=== PATIENT | male | born 1980 | race Caucasian/White ===

== ENCOUNTER 2020-12-24 13:31 | Outpatient (CLI) | payer BC | END 2020-12-24 13:32 | disposition critical access hospital (66) | LOC: EMS 13:31 | PROVIDERS: ATTEND Emergency Medicine | DX: R10.84 Generalized abdominal pain (principal); K92.1 Melena; R55 Syncope and collapse | CPT/HCPCS: A0425; A0427 ==

== ENCOUNTER 2020-12-24 13:48 | Emergency (ER) | payer BC ==
[2020-12-24] MEDS ORDERED: SODIUM CHLORIDE 0.9% 1,000 ML IV STA ×2 (14:06→14:20)
[2020-12-24 14:09] LABS: BASOPHILS % (AUTO) 0.4 %; EOSINOPHILS # (AUTO) 0.1 10^3/uL (0.0-0.7); EOSINOPHILS % (AUTO) 0.6 %; HGB - HEMOGLOBIN 9.7 g/dL (14.0-18.0); LYMPHOCYTES # (AUTO) 2.9 10^3/uL (1.5-3.5); LYMPHOCYTES % (AUTO) 31.1 %; MEAN CORPUSCULAR HEMOGLOBIN 29.2 pg (27.0-31.0); MEAN CORPUSCULAR HGB CONC 32.7 g/dL (32.0-36.0); MEAN CORPUSCULAR VOLUME 89.5 fL (80.0-94.0); MEAN PLATELET VOLUME 9.8 fL (7.4-11.4); MONOCYTES # (AUTO) 0.5 10^3/uL (0.0-1.0); MONOCYTES % (AUTO) 4.9 %; NEUTROPHILS # (AUTO) 5.8 10^3/uL (1.5-6.6); NEUTROPHILS % (AUTO) 61.6 %; PLT - PLATELET COUNT 208 10^3/uL (130-450); RED BLOOD COUNT 3.32 10^6/uL (4.70-6.10); RED CELL DISTRIBUTION WIDTH 13.4 % (12.0-15.0); WHITE BLOOD COUNT 9.4 x10^3/uL (4.8-10.8)
--- NOTE | 2020-12-24 14:25 | ED Physician Documentation ---
History of Present Illness - Stated complaint Stated Complaint: ABD PX - Chief complaint Chief Complaint: Abd Pain - Additonal information Additional information: 40-year-old male presents emergency department for evaluation of 4 days black f ormed stools and near syncope. He denies any history of melena or hematochezia in the past. He denies NSAID use. Reports drinking 2-3 beers "here and there." He has not fainted but states that a few times with ambulation he has nearly fainted over the last 2 days He has had some nausea but no vomiting. He denies abdominal pain. No fevers. On presentation this gentleman is tachycardic and quite pale appearing though he was alert and able to participate in exam and history. Past medical history: low back pain Social: Positive tobacco. Infrequent EtOH. Surgical: Lumbar laminectomy Review of Systems Constitutional: denies: Fever, Chills Eyes: reports: Reviewed and negative Ears: reports: Reviewed and negative Throat: reports: Reviewed and negative Cardiac: reports: Reviewed and negative Respiratory: reports: Reviewed and negative GI: reports: Nausea, Bloody / black stool. denies: Abdominal Pain, Vomiting, Constipation, Diarrhea : reports: Dysuria Skin: reports: Reviewed and negative Musculoskeletal: reports: Reviewed and negative Neurologic: reports: Near syncope. denies: Generalized weakness, Syncope, Seizure, Confused, Altered mental status, Headache, Head injury PD PAST MEDICAL HISTORY - Past Medical History Past Medical History: Yes - Past Surgical History Past Surgical History: Yes - Present Medications Home Medications: Ambulatory Orders Medication Instructions Recorded Confirmed No Known Home Medications 12/24/20 12/24/20 - Allergies Allergies/Adverse Reactions: Allergies Allergy/AdvReac Type Severity Reaction Status Date / Time No Known Drug Allergies Allergy Verified 12/24/20 13:56 - Social History Does the pt smoke?: Yes Smoking Status: Current every day smoker Does the pt drink ETOH?: Yes Does the pt have substance abuse?: No - POLST Patient has POLST: No PD ED PE EXPANDED - General General: Alert, Anxious, Other (pale appearing) - HEENT HEENT: Atraumatic, PERRL, Other (pale lips, tonuge OP) - Cardiac Cardiac: Tachy, Radial strong equal, Pedal strong equal, Cap refill < 2 sec. No: Murmur Present - Respiratory Respiratory: Clear to ausultation angelo. No: Distress, Labored - Abdomen Abdomen: Normal Bowel sounds. No: Tender to palpation - Rectal Rectal: Normal Tone, Other (Moderate amount of melecio melena on gloved finger) - Derm Derm: Warm and dry, Pale. No: Rash, Petecchiae, Purpura - Extremities Extremities: Normal. No: Deformity, Tenderness - Neuro Neuro: Alert and Oriented X 3, CNII-XII intact - GCS Eye Opening: Spontaneous Motor: Obeys Commands Verbal: Oriented Total: 15 Results - Vitals Vitals: Vital Signs - 24 hr 12/24/20 12/24/20 12/24/20 13:55 14:06 14:33 Temperature 37.4 C 36.7 C Heart Rate 146 H 122 H 102 H Heart Rate [ Sitting] Heart Rate [ Standing] Heart Rate [ Supine] Respiratory 14 16 15 Rate Blood Pressure 111/83 H 97/63 105/75 Blood Pressure [Sitting] Blood Pressure [Standing] Blood Pressure [Supine] O2 Saturation 99 100 100 12/24/20 12/24/20 12/24/20 15:03 15:30 16:00 Temperature Heart Rate 108 H 101 H 90 Heart Rate [ Sitting] Heart Rate [ Standing] Heart Rate [ Supine] Respiratory 18 19 15 Rate Blood Pressure 100/60 128/73 127/63 Blood Pressure [Sitting] Blood Pressure [Standing] Blood Pressure [Supine] O2 Saturation 99 99 95 12/24/20 12/24/20 12/24/20 16:30 17:00 17:15 Temperature Heart Rate 91 90 Heart Rate [ 121 H Sitting] Heart Rate [ 124 H Standing] Heart Rate [ 96 Supine] Respiratory 19 15 Rate Blood Pressure 124/67 120/70 Blood Pressure 121/80 [Sitting] Blood Pressure 105/72 [Standing] Blood Pressure 116/76 [Supine] O2 Saturation 100 98 12/24/20 12/24/20 12/24/20 17:25 17:30 18:15 Temperature 36.0 C L Heart Rate 91 95 101 H Heart Rate [ Sitting] Heart Rate [ Standing] Heart Rate [ Supine] Respiratory 14 17 15 Rate Blood Pressure 106/72 114/78 113/70 Blood Pressure [Sitting] Blood Pressure [Standing] Blood Pressure [Supine] O2 Saturation 100 100 97 12/24/20 12/24/20 12/24/20 18:30 19:04 19:30 Temperature Heart Rate 98 92 92 Heart Rate [ Sitting] Heart Rate [ Standing] Heart Rate [ Supine] Respiratory 18 17 19 Rate Blood Pressure 110/60 112/64 118/57 L Blood Pressure [Sitting] Blood Pressure [Standing] Blood Pressure [Supine] O2 Saturation 99 98 98 12/24/20 12/24/20 20:00 20:30 Temperature Heart Rate 94 91 Heart Rate [ Sitting] Heart Rate [ Standing] Heart Rate [ Supine] Respiratory 14 15 Rate Blood Pressure 124/65 116/67 Blood Pressure [Sitting] Blood Pressure [Standing] Blood Pressure [Supine] O2 Saturation 98 98 Oxygen O2 Source Room air - EKG (time done) 1358 Rate: Rate (enter#) (126) Rhythm: Sinus tachycardia Spencer: Normal QRS: Poor R wave progression Ischemia: Non specific changes (borderline GARY anterior leads) Compare to prior EKG: Old EKG unavailable Computer interpretation: Agree with computer - Labs Labs: Laboratory Tests 12/24/20 12/24/20 12/24/20 13:58 13:58 13:58 WBC 9.4 RBC 3.32 L Hgb 9.7 L Hct 29.7 L MCV 89.5 MCH 29.2 MCHC 32.7 RDW 13.4 Plt Count 208 MPV 9.8 Neut # (Auto) 5.8 Lymph # (Auto) 2.9 [place] # (Auto) 0.5 Eos # (Auto) 0.1 Baso # (Auto) 0.0 Absolute Nucleated RBC 0.00 Nucleated RBC % 0.0 PT 14.8 H INR 1.3 H Sodium 135 Potassium 4.5 Chloride 105 Carbon Dioxide 20 L Anion Gap 10.0 BUN 45 H Creatinine 0.8 Estimated GFR (MDRD) 108 Glucose 129 H Lactic Acid Calcium 8.5 Total Bilirubin 0.6 AST 34 ALT 69 H Alkaline Phosphatase 45 Total Protein 5.7 L Albumin 3.6 Globulin 2.1 Albumin/Globulin Ratio 1.7 Lipase 37 Urine Color Urine Clarity Urine pH Ur Specific [place] Urine Protein Urine Glucose (UA) Urine Ketones Urine Occult Blood Urine Nitrite Urine Bilirubin Urine Urobilinogen Ur Leukocyte Esterase Ur Microscopic Review Urine Culture Comments Nasal Adenovirus (PCR) Nasal B. parapertussis DNA (PCR) Nasal Coronavir 229E PCR Nasal Coronavir HKU1 PCR Nasal Coronavir NL63 PCR Nasal Coronavir OC43 PCR Nasal Enterovir/Rhinovir PCR Nasal Influenza B PCR Nasal Influenza A PCR Nasal Parainfluen 1 PCR Nasal Parainfluen 2 PCR Nasal Parainfluen 3 PCR Nasal Parainfluen 4 PCR Nasal RSV (PCR) Nasal B.pertussis DNA PCR Nasal C.pneumoniae (PCR) [place] Human Metapneumo PCR Nasal M.pneumoniae (PCR) Nasal SARS-CoV-2 (PCR) Blood Type Blood Type Recheck Antibody Screen 12/24/20 12/24/20 12/24/20 13:58 14:28 14:29 WBC RBC Hgb Hct MCV MCH MCHC RDW Plt Count MPV Neut # (Auto) Lymph # (Auto) [place] # (Auto) Eos # (Auto) Baso # (Auto) Absolute Nucleated RBC Nucleated RBC % PT INR Sodium Potassium Chloride Carbon Dioxide Anion Gap BUN Creatinine Estimated GFR (MDRD) Glucose Lactic Acid 1.4 Calcium Total Bilirubin AST ALT Alkaline Phosphatase Total Protein Albumin Globulin Albumin/Globulin Ratio Lipase Urine Color Urine Clarity Urine pH Ur Specific [place] Urine Protein Urine Glucose (UA) Urine Ketones Urine Occult Blood Urine Nitrite Urine Bilirubin Urine Urobilinogen Ur Leukocyte Esterase Ur Microscopic Review Urine Culture Comments Nasal Adenovirus (PCR) Nasal B. parapertussis DNA (PCR) Nasal Coronavir 229E PCR Nasal Coronavir HKU1 PCR Nasal Coronavir NL63 PCR Nasal Coronavir OC43 PCR Nasal Enterovir/Rhinovir PCR Nasal Influenza B PCR Nasal Influenza A PCR Nasal Parainfluen 1 PCR Nasal Parainfluen 2 PCR Nasal Parainfluen 3 PCR Nasal Parainfluen 4 PCR Nasal RSV (PCR) Nasal B.pertussis DNA PCR Nasal C.pneumoniae (PCR) [place] Human Metapneumo PCR Nasal M.pneumoniae (PCR) Nasal SARS-CoV-2 (PCR) Blood Type B POSITIVE Blood Type Recheck B POSITIVE Antibody Screen NEGATIVE 12/24/20 12/24/20 12/24/20 14:42 16:09 17:25 WBC RBC Hgb 8.5 L Hct 26.3 L MCV MCH MCHC RDW Plt Count MPV Neut # (Auto) Lymph # (Auto) [place] # (Auto) Eos # (Auto) Baso # (Auto) Absolute Nucleated RBC Nucleated RBC % PT INR Sodium Potassium Chloride Carbon Dioxide Anion Gap BUN Creatinine Estimated GFR (MDRD) Glucose Lactic Acid Calcium Total Bilirubin AST ALT Alkaline Phosphatase Total Protein Albumin Globulin Albumin/Globulin Ratio Lipase Urine Color YELLOW Urine Clarity CLEAR Urine pH 5.5 Ur Specific [place] 1.025 Urine Protein NEGATIVE Urine Glucose (UA) NEGATIVE Urine Ketones TRACE Urine Occult Blood NEGATIVE Urine Nitrite NEGATIVE Urine Bilirubin NEGATIVE Urine Urobilinogen 0.2 (NORMAL) Ur Leukocyte Esterase NEGATIVE Ur Microscopic Review NOT INDICATED Urine Culture Comments NOT INDICATED Nasal Adenovirus (PCR) NOT DETECTED Nasal B. parapertussis DNA (PCR) NOT DETECTED Nasal Coronavir 229E PCR NOT DETECTED Nasal Coronavir HKU1 PCR NOT DETECTED Nasal Coronavir NL63 PCR NOT DETECTED Nasal Coronavir OC43 PCR NOT DETECTED Nasal Enterovir/Rhinovir PCR NOT DETECTED Nasal Influenza B PCR NOT DETECTED Nasal Influenza A PCR NOT DETECTED Nasal Parainfluen 1 PCR NOT DETECTED Nasal Parainfluen 2 PCR NOT DETECTED Nasal Parainfluen 3 PCR NOT DETECTED Nasal Parainfluen 4 PCR NOT DETECTED Nasal RSV (PCR) NOT DETECTED Nasal B.pertussis DNA PCR NOT DETECTED Nasal C.pneumoniae (PCR) NOT DETECTED [place] Human Metapneumo PCR NOT DETECTED Nasal M.pneumoniae (PCR) NOT DETECTED Nasal SARS-CoV-2 (PCR) NOT DETECTED Blood Type Blood Type Recheck Antibody Screen - Rads (name of study) CT abd/pelvis Radiology: Final report received (Heterogeneously hyperenhancing 12.5 cm mass is seen within the left upper quadrant that is confluent with multiple varicose vessels including gastric varices. Differentials includes splenic vein thrombosis with development of collateral vessels versus vascular malformation) PD MEDICAL DECISION MAKING - ED course Complexity details: reviewed results, re-evaluated patient, considered differential, d/w patient ED course: 40-year-old male presents to the emergency department for evaluation of near syncope and melena for 4 days. On presentation he was initially tachycardic sinus rhythm in the 120s. Initial hemoglobin 9.7. The rest of the chemistry and CBC was essentially unremarkable. We did proceed with a CT of the abdomen. Unfortunately there is a 12.5 cm hyperenhancing mass within the left upper quadrant confluent with multiple gastric varices. This could represent primary variceal hemorrhage versus a splenic vein thrombosis that ultimately developed collateral vessels versus a primary vascular malformation. 1600: I did speak with on-call surgeon Dr. Hernandez. She does not feel that we have the adequate services including gastroenterology here at [facility] to continue to manage this patient. We will look to transfer him to an outlying facility. Respiratory PCR panel ordered for emergent transport. Patient has received nearly 2 L of crystalloid with reduction of in heart rate to the mid 90s. I have instituted Protonix and octreotide infusion as well as ordered 2 g of ceftriaxone. 1630: Spoke with Dr. Isaiah Luna wireworker supervisor at [facility]. He does not feel that they have the adequate GI services available for thrombosing or sclerosing of this large mass. He recommends that we attempt transfer to [facility] or [facility] versus [facility]. 1645: I have Spoken on the phone with Dr. Bradley gastroenterology associated with [facility]. He agrees that the patient should be transferred. GI will consult. [facility] will call us back with an accepting hospitalist and bed. 1700: I have spoken with admitting hospitalist Dr. Irene at [facility]. She agrees the patient should be transferred and agrees to accept on transfer however she would like repeat orthostatic vital signs as well as a hemogram to determine which type of bed is necessary. 1830: Repeat hemogram despite 2 L of fluid shows a drop of only 1 g of hemoglobin. Patient's resting tachycardia has resolved although he does remain somewhat orthostatic when standing in regards to his heart rate. This finding was discussed with Dr. Irene at [facility]. She feels he is stable for continuation of transferred there via ALS. He will be going to medical surgical floor. All appropriate COBRA paperwork completed. Findings and plan communicated to patient and I have spoken on the phone with his regarding the plan to transfer Departure - Departure Disposition: 02 Transfer Acute Care Hosp Clinical Impression: Upper GI hemorrhage, Abdominal mass, left upper quadrant, Gastric varices
[2020-12-24 14:27] LABS: ALBUMIN 3.6 g/dL (3.2-5.5); ALBUMIN/GLOBULIN RATIO 1.7 (1.0-2.2); BILIRUBIN,TOTAL 0.6 mg/dL (0.2-1.0); CALCIUM 8.5 mg/dL (8.5-10.3); CREATININE 0.8 mg/dL (0.6-1.2); TOTAL PROTEIN 5.7 g/dL (6.7-8.2)
[2020-12-24 14:37] LABS: INR 1.3 (0.8-1.2); PT - PROTHROMBIN TIME 14.8 secs (9.9-12.6)
[2020-12-24 14:52] LABS: BILIRUBIN,URINE NEGATIVE (NEGATIVE); GLUCOSE, URINE (UA) NEGATIVE (NEGATIVE); KETONES,URINE (UA) TRACE mg/dL (NEGATIVE); LEUKOCYTE ESTERASE, URINE NEGATIVE (NEGATIVE); NITRITE,URINE NEGATIVE (NEGATIVE); OCCULT BLOOD,URINE NEGATIVE (NEGATIVE); PH,URINE 5.5 PH (5.0-7.5); PROTEIN,URINE NEGATIVE (NEGATIVE); UROBILINOGEN,URINE 0.2 (NORMAL) E.U./dL (NORMAL)
[2020-12-24 14:53] LABS: CLARITY,URINE CLEAR (CLEAR)
[2020-12-24] MEDS ORDERED: IOVERSOL 320 100 ML VIAL IVP ONE ×2 (15:05→16:59)
[2020-12-24] MEDS ORDERED: PANTOPRAZOLE 40 MG VIAL IVP STA (15:48)
[2020-12-24] MEDS ORDERED: PANTOPRAZOLE 80 MG in SODIUM CHLORIDE 0.9% 100ML 100 ML IV STA (15:48)
--- NOTE | 2020-12-24 15:55 | CT Report ---
PROCEDURE: Abdomen/Pelvis W INDICATIONS: hypotension, tachycardia, melena CONTRAST: IV CONTRAST: Optiray 320 ml: 100 PO CONTRAST: *NO PO CONTRAST TECHNIQUE: After the administration of intravenous contrast, 5 mm thick sections acquired from the diaphragms to the symphysis. 5 mm thick coronal and sagittal reformats were acquired. For radiation dose reducti on, the following was used: automated exposure control, adjustment of mA and/or kV according to dodie ent size. COMPARISON: None. FINDINGS: Image quality: Excellent. ABDOMEN: Lung bases: Lung bases are clear. Heart size is normal. Solid organs: Liver and spleen are normal in size and enhancement. Gallbladder appears normal. Melvin iary system is non dilated. Pancreas enhances normally. No adrenal nodules. Kidneys demonstrate no rmal size and enhancement, without hydronephrosis. A 5 mm nodular calculus is seen in the interpolar region of the left kidney. Peritoneum and bowel: Bowel loops demonstrate normal wall thickness and caliber. No free fluid or a ir. Nodes and vessels: No retroperitoneal or mesenteric adenopathy by size criteria. Aorta and inferior vena cava are normal in size. There is a heterogeneously hyperenhancing mass in the left upper quadrant measuring 11.3 x 8.2 x 12.5 cm that is confluent with multiple tubular mildly dilated blood vessels including gastric varices. T he mass is confluent with the splenic vein, which is enlarged and hypoenhancing. The mass appears to be separate from the adjacent left kidney, adrenal, spleen, and gastric fundus. The pancreatic tail i s difficult to differentiate from portions of the mass. Miscellaneous: No ventral hernias. PELVIS: Genitourinary: Bladder wall thickness is normal. Miscellaneous: No inguinal hernias or adenopathy. Bones: No suspicious bony lesions. No vertebral body compression fractures. Degenerative changes a re seen in the spine at the L5-S1 level. IMPRESSION: Heterogeneously hyperenhancing 12.5 cm mass is seen in the left upper quadrant that is confluent with multiple varicose vessels including gastric varices, which could represent a source for gastrointest inal hemorrhage. Differential considerations for the mass include splenic vein thrombosis with develo pment of numerous enlarged collateral vessels versus a vascular malformation or a hypervascular neopl asm. There is no significant upper abdominal lymphadenopathy. No intraperitoneal hemorrhage is seen. Consider CT angiogram with arterial and venous phases for further evaluation. Findings were discussed with the ordering provider, Cathy MURPHY, of the Emergency Departmen t by telephone on 12/24/2020 at 3:50 PM. Reviewed by: Seth Timmons MD on 12/24/2020 3:54 PM PST Approved by: Seth Timmons MD on 12/24/2020 3:54 PM PST Station ID: [id number]
[2020-12-24] MEDS ORDERED: OCTREOTIDE 500 MCG in SODIUM CHLORIDE 0.9% 100ML 95 ML IV STA (16:04)
[2020-12-24] MEDS ORDERED: OCTREOTIDE IV STA (16:08)
[2020-12-24] MEDS ORDERED: SODIUM CHLORIDE 0.9% IV STA (16:08)
[2020-12-24] MEDS ORDERED: cefTRIAXone 2 GM in SODIUM CHLORIDE 0.9% MINIBAG 100 ML IV STA (16:09)
[2020-12-24 17:07] LABS: C. PNEUMONIAE- RESP PCR PANEL NOT DETECTED
[2020-12-24 17:32] LABS: HGB - HEMOGLOBIN 8.5 g/dL (14.0-18.0)
[2020-12-24 20:33] VITALS: BP 116/67
== END 2020-12-24 20:49 | disposition short-term general hospital (02) ==
LOC: ED 13:48
DX: K92.2 Gastrointestinal hemorrhage, unspecified (principal); I86.4 Gastric varices; R19.00 Intra-abdominal and pelvic swelling, mass and lump, unspecified site; R00.0 Tachycardia, unspecified; F17.200 Nicotine dependence, unspecified, uncomplicated; Z20.822 Contact with and (suspected) exposure to COVID-19
CPT/HCPCS: 0202U; 36415; 74177; 80053; 81003; 83605; 83690; 85014; 85018; 85025; 85610; 86850; 86900; 86901; 93005; 96361; 96365; 96375; 96376; 99283; 99285; Q9967; 81001; 87086

== ENCOUNTER 2020-12-24 20:52 | Outpatient (CLI) | payer BC | END 2020-12-24 20:53 | disposition short-term general hospital (02) | LOC: EMS 20:52 | DX: K92.2 Gastrointestinal hemorrhage, unspecified (principal); R19.04 Left lower quadrant abdominal swelling, mass and lump | CPT/HCPCS: A0425; A0426 ==

== ENCOUNTER 2021-01-03 21:47 | Outpatient (CLI) | payer BC | END 2021-01-03 21:48 | disposition critical access hospital (66) | LOC: EMS 21:47 | PROVIDERS: ATTEND Emergency Medicine | DX: R10.9 Unspecified abdominal pain (principal) | CPT/HCPCS: A0425; A0429 ==

== ENCOUNTER 2021-01-03 22:12 | Emergency (ER) | payer BC ==
[2021-01-03] MEDS ORDERED: HYDROmorphone 1 MG/ML CARPUJECT IVP STA (22:30)
[2021-01-03] MEDS ORDERED: SODIUM CHLORIDE 0.9% 1,000 ML IV STA (22:30)
[2021-01-03] MEDS ORDERED: IOVERSOL 320 100 ML VIAL IVP ONE ×2 (22:45→23:31)
[2021-01-03 22:49] LABS: BASOPHILS # (AUTO) 0.1 10^3/uL (0.0-0.1); BASOPHILS % (AUTO) 0.4 %; EOSINOPHILS # (AUTO) 0.2 10^3/uL (0.0-0.7); EOSINOPHILS % (AUTO) 1.5 %; HGB - HEMOGLOBIN 7.7 g/dL (14.0-18.0); LYMPHOCYTES # (AUTO) 1.2 10^3/uL (1.5-3.5); LYMPHOCYTES % (AUTO) 7.6 %; MEAN CORPUSCULAR HEMOGLOBIN 27.9 pg (27.0-31.0); MEAN CORPUSCULAR HGB CONC 31.8 g/dL (32.0-36.0); MEAN CORPUSCULAR VOLUME 87.7 fL (80.0-94.0); MEAN PLATELET VOLUME 8.9 fL (7.4-11.4); MONOCYTES # (AUTO) 1.4 10^3/uL (0.0-1.0); MONOCYTES % (AUTO) 8.7 %; NEUTROPHILS # (AUTO) 12.9 10^3/uL (1.5-6.6); NEUTROPHILS % (AUTO) 80.7 %; PLT - PLATELET COUNT 545 10^3/uL (130-450); RED BLOOD COUNT 2.76 10^6/uL (4.70-6.10); RED CELL DISTRIBUTION WIDTH 14.6 % (12.0-15.0); WHITE BLOOD COUNT 15.9 x10^3/uL (4.8-10.8)
[2021-01-03 23:04] LABS: ALBUMIN 2.3 g/dL (3.2-5.5); ALBUMIN/GLOBULIN RATIO 0.7 (1.0-2.2); CALCIUM 8.5 mg/dL (8.5-10.3); CREATININE 0.7 mg/dL (0.6-1.2); TOTAL PROTEIN 5.7 g/dL (6.7-8.2)
[2021-01-03] MEDS ORDERED: LACTATED RINGERS 1,500 ML IV STA (23:27)
[2021-01-03 23:48] LABS: GLUCOSE, URINE (UA) NEGATIVE (NEGATIVE); KETONES,URINE (UA) >=80 mg/dL (NEGATIVE); LEUKOCYTE ESTERASE, URINE NEGATIVE (NEGATIVE); NITRITE,URINE NEGATIVE (NEGATIVE); OCCULT BLOOD,URINE TRACE-LYSE (NEGATIVE); PH,URINE 6.5 PH (5.0-7.5); PROTEIN,URINE NEGATIVE (NEGATIVE); UROBILINOGEN,URINE 4 E.U./dL (NORMAL)
[2021-01-03 23:50] LABS: CLARITY,URINE CLEAR (CLEAR)
[2021-01-04] LABS: BILIRUBIN,URINE NEGATIVE (NEGATIVE); ICTOTEST,URINE NEGATIVE
[2021-01-04] MEDS ORDERED: HYDROmorphone 0.5 MG/0.5 ML SYRINGE IVP STA (00:19)
--- NOTE | 2021-01-04 00:26 | ED Physician Documentation ---
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 Leyva at [facility], presents with abdominal pain, that is diffuse, constant, severe 10 out of 10, progressively worsening aching quality associated with abdominal bloating and inability to have a bowel movement since his surgery. Patient states that his CLIFFORD drain has been putting about 400 cc over the past 24 hours. Denies fevers or chills. Denies cough, shortness of breath, urinary symptoms. Denies nausea or vomiting. Review of Systems Ten Systems: 10 systems reviewed and negative Constitutional: denies: Fever GI: reports: Abdominal Pain, Constipation. denies: Nausea, Vomiting : denies: Dysuria, Frequency, Hematuria Neurologic: reports: Generalized weakness PD PAST MEDICAL HISTORY - Past Medical History Past Medical History: No - Past Surgical History Past Surgical History: Yes General: Splenectomy - Present Medications Home Medications: Ambulatory Orders Medication Instructions Recorded Confirmed No Known Home Medications 12/24/20 12/24/20 - Allergies Allergies/Adverse Reactions: Allergies Allergy/AdvReac Type Severity Reaction Status Date / Time shellfish derived Allergy Edema Verified 01/03/21 22:23 - Social History Does the pt smoke?: Yes Smoking Status: Current every day smoker Does the pt drink ETOH?: Yes Does the pt have substance abuse?: No - Immunizations Immunizations are current?: Yes - POLST Patient has POLST: No PD ED PE NORMAL - Vitals Vital signs reviewed: Yes - General General: Alert and oriented X 3, Well developed/nourished, Other (moderate distress) - HEENT HEENT: Atraumatic, PERRL, EOMI - Neck Neck: Supple, no meningeal sign - Cardiac Cardiac: RRR - Respiratory Respiratory: No respiratory distress, Clear bilaterally - Abdomen Abdomen: Other (distended and diffusely ttp. wound sites clean. CLIFFORD with about 80cc serous fluid) - Male Male : Deferred - Rectal Rectal: Other (brown stool in vault) - Back Back: No CVA TTP - Derm Derm: Normal color - Extremities Extremities: No edema - Neuro Neuro: Alert and oriented X 3 - Psych Psych: Normal mood, Normal affect Results - Vitals Vitals: Vital Signs - 24 hr 01/03/21 01/03/21 01/03/21 22:10 22:29 22:45 Temperature 37.7 C 37.7 C Heart Rate 87 87 85 Respiratory 18 18 18 Rate Blood Pressure 136/68 H 136/68 H 139/78 H O2 Saturation 98 98 100 01/03/21 01/03/21 01/04/21 23:15 23:30 00:00 Temperature Heart Rate 86 86 88 Respiratory 18 18 18 Rate Blood Pressure 136/76 H 165/79 H 180/100 H O2 Saturation 100 100 99 Oxygen O2 Source Room air - Labs Labs: Laboratory Tests 01/03/21 01/03/21 01/03/21 22:42 22:42 22:42 WBC 15.9 H RBC 2.76 L Hgb 7.7 L Hct 24.2 L MCV 87.7 MCH 27.9 MCHC 31.8 L RDW 14.6 Plt Count 545 H MPV 8.9 Neut # (Auto) 12.9 H Lymph # (Auto) 1.2 L [place] # (Auto) 1.4 H Eos # (Auto) 0.2 Baso # (Auto) 0.1 Absolute Nucleated RBC 0.28 Nucleated RBC % 1.8 APTT Sodium 136 Potassium 4.0 Chloride 99 L Carbon Dioxide 23 Anion Gap 14.0 H BUN 9 Creatinine 0.7 Estimated GFR (MDRD) 126 Glucose 127 H Lactic Acid 0.9 Calcium 8.5 Total Bilirubin 1.0 AST 46 H ALT 59 Alkaline Phosphatase 141 H Total Protein 5.7 L Albumin 2.3 L Globulin 3.4 Albumin/Globulin Ratio 0.7 L Lipase 30 Urine Color Urine Clarity Urine pH Ur Specific [place] Urine Protein Urine Glucose (UA) Urine Ketones Urine Occult Blood Urine Nitrite Urine Bilirubin Urine Urobilinogen Ur Leukocyte Esterase Ur Microscopic Review Urine Culture Comments 01/03/21 01/03/21 22:42 23:38 WBC RBC Hgb Hct MCV MCH MCHC RDW Plt Count MPV Neut # (Auto) Lymph # (Auto) [place] # (Auto) Eos # (Auto) Baso # (Auto) Absolute Nucleated RBC Nucleated RBC % APTT 25.4 Sodium Potassium Chloride Carbon Dioxide Anion Gap BUN Creatinine Estimated GFR (MDRD) Glucose Lactic Acid Calcium Total Bilirubin AST ALT Alkaline Phosphatase Total Protein Albumin Globulin Albumin/Globulin Ratio Lipase Urine Color YELLOW Urine Clarity CLEAR Urine pH 6.5 Ur Specific [place] 1.020 Urine Protein NEGATIVE Urine Glucose (UA) NEGATIVE Urine Ketones >=80 H Urine Occult Blood TRACE-LYSE Urine Nitrite NEGATIVE Urine Bilirubin NEGATIVE Urine Urobilinogen 4 H Ur Leukocyte Esterase NEGATIVE Ur Microscopic Review NOT INDICATED Urine Culture Comments NOT INDICATED PD MEDICAL DECISION MAKING - ED course ED course: 40yM presents pod 5 with low grade fever and intestinal ileus on ct. d/w gen surg Dr. Ulrich strike planning applications at [facility] who will accept patient in transfer. surgery is recommending holding off on antibiotics for now. ng tube placed and pain meds given with improvement in symptoms. Departure - Departure Disposition: 02 Transfer Acute Care Hosp Clinical Impression: Post-splenectomy, Status post partial gastrectomy, Fever, Abdominal pain, Ileus Condition: Good
[2021-01-04] MEDS ORDERED: LORazepam 2 MG/ML VIAL IVP STA (00:44)
[2021-01-04 01:27] LABS: C. PNEUMONIAE- RESP PCR PANEL NOT DETECTED
[2021-01-04] MEDS ORDERED: HYDROmorphone 2 MG/ML VIAL IVP STA (01:54)
[2021-01-04 02:03] VITALS: BP 174/87
--- NOTE | 2021-01-04 08:23 | XRAY Report ---
PROCEDURE: Chest 1 View X-Ray INDICATIONS: post op day 5 abd surgery with fevers TECHNIQUE: One view of the chest was acquired. COMPARISON: None. FINDINGS: Surgical changes and devices: None. Scattered subsegmental scarring/atelectasis. No acute consolidation. Possible small layering left pl eural effusion, with adjacent mild left basilar/retrocardiac opacity. No pneumothorax identified. Mediastinum: Mediastinal contours appear normal. Heart size is normal. Bones and chest wall: No suspicious bony lesions. Overlying soft tissues appear unremarkable. IMPRESSION: Possible small left pleural effusion with adjacent opacity. Low lung volumes. Scattered subsegmental scarring versus atelectasis/aspiration. No acute consolidation. If there is persistent clinical diagn ostic uncertainty, recommend short interval follow-up chest radiographs after treatment for further a ssessment. Findings are concordant with the preliminary study interpretation provided at the time of the study. Reviewed by: Ata Hernandez MD on 01/04/2021 8:22 AM PST Approved by: Ata Hernandez MD on 01/04/2021 8:22 AM PST Station ID: [id number]
--- NOTE | 2021-01-04 08:26 | XRAY Report ---
PROCEDURE: Post ET Tube 1V CXR INDICATIONS: post ng tube TECHNIQUE: One view of the chest was acquired. COMPARISON: 01/03/2021 FINDINGS: Enteric tube is noted with the tip not well seen however probably within the stomach and left upper q uadrant. Lungs and pleura: No pneumothorax. Mild bibasilar and perihilar atelectatic opacities are improved. P ossible trace left pleural fluid, although low lung volumes limits evaluation. No definite focal cons olidation Mediastinum: Mediastinal contours appear normal. Heart size is normal. Bones and chest wall: No suspicious bony lesions. Overlying soft tissues appear unremarkable. IMPRESSION: Enteric tube with the tip projecting in the left upper quadrant. No new focal consolidation. Low lung volumes with scattered atelectasis. Findings are concordant with the preliminary study interpretation provided at the time of the study. Reviewed by: Ata Hernandez MD on 01/04/2021 8:24 AM PST Approved by: Ata Hernandez MD on 01/04/2021 8:24 AM PST Station ID: [id number]
--- NOTE | 2021-01-04 08:30 | CT Report ---
PROCEDURE: Abdomen/Pelvis W INDICATIONS: Abdominal pain, acute, nonlocalized CONTRAST: IV CONTRAST: Optiray 320 ml: 100 PO CONTRAST: *NO PO CONTRAST TECHNIQUE: After the administration of intravenous contrast, 5 mm thick sections acquired from the diaphragms to the symphysis. 5 mm thick coronal and sagittal reformats were acquired. For radiation dose reducti on, the following was used: automated exposure control, adjustment of mA and/or kV according to dodie ent size. COMPARISON: 12/24/2020 FINDINGS: Image quality: Excellent. ABDOMEN: Lung bases: Small left pleural effusion. Bibasilar atelectasis, left greater than right. Heart size i s normal. Solid organs: Interval splenectomy and distal pancreatectomy and removal of numerous varicosities in the left upper quadrant as well as masslike structures. There are surgical yuliana at the posterior margin of the fundus of the stomach. Liver has a normal enhancement pattern. Gallbladder is unremarka ble. Biliary system is non dilated. Pancreas enhances normally. No adrenal nodules. Kidneys demon strate normal size and enhancement, without hydronephrosis. Peritoneum and bowel: There are numerous dilated small bowel loops with air-fluid levels. The distal small bowel is normal in caliber. Findings may either represent focal ileus or small bowel obstructio n. Recent distal pancreatectomy and splenectomy and removal of multiple left upper quadrant structure s. There is a surgical drain in the left upper quadrant. There are numerous tiny flecks of air within the surgical bed, possibly simply sequelae of recent surgery in the presence of a drain. Nodes and vessels: No retroperitoneal or mesenteric adenopathy by size criteria. Aorta and inferior vena cava are normal in size. Miscellaneous: No ventral hernias. PELVIS: Genitourinary: Bladder wall thickness is normal. Miscellaneous: No inguinal hernias or adenopathy. Bones: No suspicious bony lesions. No vertebral body compression fractures. IMPRESSION: 1. Interval extensive surgery in the left upper quadrant, including splenectomy and distal pancreatec alyce and removal of multiple tubular structures, possibly representing a combination of mass and vari cosities. 2. Flecks of air are present in the surgical bed. There is no abscess identified. A left upper quadra nt surgical drain is in place. 3. Multiple dilated loops of small bowel with air-fluid levels. Consider postop ileus versus developm ent of small bowel obstruction. 4. Small left pleural effusion, basilar atelectasis, left greater than right. A preliminary report with the above findings was provided at the time of the study by [facility]. Reviewed by: Samir Woodward MD on 01/04/2021 8:29 AM PST Approved by: Samir Woodward MD on 01/04/2021 8:29 AM PST Station ID: [id number]
== END 2021-01-04 02:05 | disposition short-term general hospital (02) ==
LOC: ED 22:12
DX: K56.7 Ileus, unspecified (principal); R10.84 Generalized abdominal pain; R50.9 Fever, unspecified; Z98.890 Other specified postprocedural states; Z90.81 Acquired absence of spleen; Z90.3 Acquired absence of stomach [part of]; Z20.822 Contact with and (suspected) exposure to COVID-19; F17.200 Nicotine dependence, unspecified, uncomplicated
CPT/HCPCS: 0202U; 36415; 43753; 71045; 74177; 80053; 81003; 83605; 83690; 85025; 85730; 86850; 86900; 86901; 87040; 96374; 96375; 96376; 99285; J1170; J2060; J7120; Q9967; 81001; 85610; 87086

== ENCOUNTER 2021-01-04 02:03 | Outpatient (CLI) | payer BC | END 2021-01-04 02:04 | disposition short-term general hospital (02) | LOC: EMS 02:03 | PROVIDERS: ATTEND Emergency Medicine | DX: K56.7 Ileus, unspecified (principal); R10.9 Unspecified abdominal pain; R50.9 Fever, unspecified | CPT/HCPCS: A0425; A0428 ==

== ENCOUNTER 2021-08-19 00:19 | Outpatient (CLI) | payer BC | END 2021-08-19 00:20 | disposition critical access hospital (66) | LOC: EMS 00:19 | DX: R50.9 Fever, unspecified (principal); R10.32 Left lower quadrant pain | CPT/HCPCS: A0425; A0427 ==

== ENCOUNTER 2021-08-19 00:39 | Emergency (ER) | payer BC ==
[2021-08-19] MEDS ORDERED: SODIUM CHLORIDE 0.9% 1,000 ML IV STA (00:58)
--- NOTE | 2021-08-19 01:00 | ED Physician Documentation ---
PD HPI ABD PAIN - Stated complaint Stated Complaint: FEVER S/P STENT YESTERDAY - Chief complaint Chief Complaint: Fever - History obtained from History obtained from: Patient, EMS - History of Present Illness Timing - onset: Today Timing - duration: Hours (just in the past couple of hours, has some lower abd cramping pain and noted feverish. Took temp and was 102 degrees at home. He is 1 day s/p ERCP with stent for fluid drainage, and was told to watch for fevers/pains/etc.) Timing - details: Gradual onset Quality: Cramping, Aching, Pain Location: Periumbilical Radiation: No: Chest, Left flank, Right flank Worsened by: No: Moving, Breathing Associated symptoms: Fever (just the past 1-2 hours). No: Nausea, Vomiting, Diarrhea, Constipation, Dysuria Similar symptoms before: Has not had sx before Recently seen: Surgery (Had ERCP at [facility] yesterday by GI for persistent pancreatic fluid (cyst) with drainage of the fluid with stent.) Review of Systems Constitutional: reports: Fever Nose: denies: Rhinorrhea / runny nose, Congestion Throat: reports: Sore throat (after the ERCP yesterday, lessened today) Cardiac: denies: Chest pain / pressure Respiratory: denies: Dyspnea, Cough GI: reports: Abdominal Pain. denies: Nausea, Vomiting, Diarrhea, Bloody / black stool : denies: Dysuria Skin: denies: Rash, Lesions Neurologic: denies: Altered mental status, Headache PD PAST MEDICAL HISTORY - Past Medical History Past Medical History: Yes Cardiovascular: None Respiratory: None Neuro: None HEENT: None Derm: None Other Past Medical History: PANCREATIC CANCER... - Past Surgical History Past Surgical History: Yes General: Splenectomy, Other - Present Medications Home Medications: Ambulatory Orders Medication Instructions Recorded Confirmed levoFLOXacin [Levaquin] 500 mg PO ONCE 08/19/21 08/19/21 - Allergies Allergies/Adverse Reactions: Allergies Allergy/AdvReac Type Severity Reaction Status Date / Time shellfish derived Allergy Edema Verified 08/19/21 00:52 - Social History Does the pt smoke?: Yes Smoking Status: Current every day smoker Does the pt drink ETOH?: Yes Does the pt have substance abuse?: No - Immunizations Immunizations are current?: Yes - POLST Patient has POLST: No PD ED PE NORMAL - Vitals Vital signs reviewed: Yes - General General: Alert and oriented X 3, No acute distress, Well developed/nourished - HEENT HEENT: Moist mucous membranes, Pharynx benign - Neck Neck: Supple, no meningeal sign, No adenopathy - Cardiac Cardiac: RRR, No murmur - Respiratory Respiratory: Clear bilaterally - Abdomen Abdomen: Normal bowel sounds, Soft, Non distended, No organomegaly, Other (mild tender epigastric and LUQ (which he says has had since splenectomy).) - Male Male : Deferred - Back Back: No CVA TTP - Derm Derm: Normal color, Warm and dry - Extremities Extremities: No edema, No calf tenderness / cord - Neuro Neuro: Alert and oriented X 3, No motor deficit, Normal speech Results - Vitals Vitals: Vital Signs - 24 hr 08/19/21 08/19/21 08/19/21 00:49 00:58 01:49 Temperature 37.6 C Heart Rate 95 91 86 Respiratory 17 17 17 Rate Blood Pressure 151/117 H 130/91 H 121/72 O2 Saturation 96 97 96 08/19/21 02:23 Temperature Heart Rate 88 Respiratory 15 Rate Blood Pressure 124/68 O2 Saturation 96 Oxygen O2 Source Room air - Labs Labs: Laboratory Tests 08/19/21 08/19/21 08/19/21 01:00 01:18 01:18 WBC 17.0 H RBC 4.66 L Hgb 13.4 L Hct 41.5 L MCV 89.1 MCH 28.8 MCHC 32.3 RDW 14.5 Plt Count 337 MPV 9.6 Neut # (Auto) 13.3 H Lymph # (Auto) 1.6 O'Brien # (Auto) 2.0 H Eos # (Auto) 0.0 Baso # (Auto) 0.1 Absolute Nucleated RBC 0.00 Band Neuts % (Manual) Not Reportable Abnorm Lymph % (Manual) Not Reportable Nucleated RBC % 0.0 Neutrophils # (Manual) Not Reportable Lymphocytes # (Manual) Not Reportable Monocytes # (Manual) Not Reportable Eosinophils # (Manual) Not Reportable Basophils # (Manual) Not Reportable Differential Comment MANUAL=AUTO DIFF Platelet Estimate NORMAL (130-450,000) RBC Morph Micro Appear NORMAL APPEARANCE Sodium 136 Potassium 3.9 Chloride 101 Carbon Dioxide 26 Anion Gap 9.0 BUN 15 Creatinine 0.8 Estimated GFR (MDRD) 108 Glucose 158 H Lactic Acid Calcium 9.1 Total Bilirubin 1.3 H AST 32 ALT 38 Alkaline Phosphatase 88 Total Protein 6.8 Albumin 4.0 Globulin 2.8 Albumin/Globulin Ratio 1.4 Lipase 92 H Urine Color Urine Clarity Urine pH Ur Specific [place] Urine Protein Urine Glucose (UA) Urine Ketones Urine Occult Blood Urine Nitrite Urine Bilirubin Urine Urobilinogen Ur Leukocyte Esterase Ur Microscopic Review Urine Culture Comments Nasal Adenovirus (PCR) NOT DETECTED Nasal B. parapertussis DNA (PCR) NOT DETECTED Nasal Coronavir 229E PCR NOT DETECTED Nasal Coronavir HKU1 PCR NOT DETECTED Nasal Coronavir NL63 PCR NOT DETECTED Nasal Coronavir OC43 PCR NOT DETECTED Nasal Enterovir/Rhinovir PCR DETECTED A Nasal Influenza B PCR NOT DETECTED Nasal Influenza A PCR NOT DETECTED Nasal Parainfluen 1 PCR NOT DETECTED Nasal Parainfluen 2 PCR NOT DETECTED Nasal Parainfluen 3 PCR NOT DETECTED Nasal Parainfluen 4 PCR NOT DETECTED Nasal RSV (PCR) NOT DETECTED Nasal B.pertussis DNA PCR NOT DETECTED Nasal C.pneumoniae (PCR) NOT DETECTED [place] Human Metapneumo PCR NOT DETECTED Nasal M.pneumoniae (PCR) NOT DETECTED Nasal SARS-CoV-2 (PCR) NOT DETECTED 08/19/21 08/19/21 01:18 02:43 WBC RBC Hgb Hct MCV MCH MCHC RDW Plt Count MPV Neut # (Auto) Lymph # (Auto) O'Brien # (Auto) Eos # (Auto) Baso # (Auto) Absolute Nucleated RBC Band Neuts % (Manual) Abnorm Lymph % (Manual) Nucleated RBC % Neutrophils # (Manual) Lymphocytes # (Manual) Monocytes # (Manual) Eosinophils # (Manual) Basophils # (Manual) Differential Comment Platelet Estimate RBC Morph Micro Appear Sodium Potassium Chloride Carbon Dioxide Anion Gap BUN Creatinine Estimated GFR (MDRD) Glucose Lactic Acid 1.4 Calcium Total Bilirubin AST ALT Alkaline Phosphatase Total Protein Albumin Globulin Albumin/Globulin Ratio Lipase Urine Color YELLOW Urine Clarity CLEAR Urine pH 7.0 Ur Specific [place] 1.015 Urine Protein NEGATIVE Urine Glucose (UA) NEGATIVE Urine Ketones NEGATIVE Urine Occult Blood NEGATIVE Urine Nitrite NEGATIVE Urine Bilirubin NEGATIVE Urine Urobilinogen 1 (NORMAL) Ur Leukocyte Esterase NEGATIVE Ur Microscopic Review NOT INDICATED Urine Culture Comments NOT INDICATED Nasal Adenovirus (PCR) Nasal B. parapertussis DNA (PCR) Nasal Coronavir 229E PCR Nasal Coronavir HKU1 PCR Nasal Coronavir NL63 PCR Nasal Coronavir OC43 PCR Nasal Enterovir/Rhinovir PCR Nasal Influenza B PCR Nasal Influenza A PCR Nasal Parainfluen 1 PCR Nasal Parainfluen 2 PCR Nasal Parainfluen 3 PCR Nasal Parainfluen 4 PCR Nasal RSV (PCR) Nasal B.pertussis DNA PCR Nasal C.pneumoniae (PCR) [place] Human Metapneumo PCR Nasal M.pneumoniae (PCR) Nasal SARS-CoV-2 (PCR) - Rads (name of study) chest xray Radiology: Prelim report reviewed, See rad report abd/pelvic CT Radiology: Prelim report reviewed, See rad report PD MEDICAL DECISION MAKING - ED course Complexity details: reviewed results (expected fluid collection in abd with stent. No free air nor free fluid. lactate normal. UA/CXR negative. Biofire showing positive rhinovirus. ), considered differential (1 day post ERCP with stent placement, with fever and mid abd pain. Can check for leakage/perforation, as well as CXR/UA and resp PCR test. Concern of asplenic. ), d/w patient, d/w talent consultant (local telephone operator GI at [facility], who reviewed pt chart there and images from us, and I discussed labs/exam/findings. His feeling is that patient is okay to go home, that CT would have found acute process (perf, leakage, etc). Presumed viral cause. ) Departure - Departure Disposition: 01 Home, Self Care Clinical Impression: Postprocedural fever, Viral URI Condition: Stable Record reviewed to determine appropriate education?: Yes Comments: Continue your prior instructions from gastroenterology at [facility] as well as the antibiotics prescribed. Stay well-hydrated. Tylenol every 4-6 hours if needed for fevers or pains. I talked with the on-call m1 armor crewman who felt the testing we did was appropriate and adequate to detect any significant cause for the fever. At this point presumption would be a viral illness given the rhinovirus positive on your respiratory panel test. As such I would expect some feverishness as well as sore throat and cough over the next several days. Call your m1 armor crewman in the next day or 2 to update them on any symptoms. Return to the ER in particular if you have worsening abdominal pain or associated vomiting bloody stool or other concerns.
[2021-08-19] MEDS ORDERED: IOVERSOL 320 100 ML VIAL IVP ONE ×2 (01:12→02:31)
[2021-08-19] MEDS ORDERED: HYDROmorphone 1 MG/ML CARPUJECT IVP STA (01:24)
[2021-08-19] MEDS ORDERED: AMPICILLIN/SULBACTAM 1.5 GM in SODIUM CHLORIDE 0.9% MINIBAG 100 ML IV STA (01:25)
[2021-08-19 01:28] LABS: BASOPHILS # (AUTO) 0.1 10^3/uL (0.0-0.1); BASOPHILS % (AUTO) 0.4 %; EOSINOPHILS % (AUTO) 0.1 %; HCT - HEMATOCRIT 41.5 % (42.0-52.0); HGB - HEMOGLOBIN 13.4 g/dL (14.0-18.0); LYMPHOCYTES # (AUTO) 1.6 10^3/uL (1.5-3.5); LYMPHOCYTES % (AUTO) 9.2 %; MEAN CORPUSCULAR HEMOGLOBIN 28.8 pg (27.0-31.0); MEAN CORPUSCULAR HGB CONC 32.3 g/dL (32.0-36.0); MEAN CORPUSCULAR VOLUME 89.1 fL (80.0-94.0); MEAN PLATELET VOLUME 9.6 fL (7.4-11.4); MONOCYTES % (AUTO) 11.5 %; NEUTROPHILS # (AUTO) 13.3 10^3/uL (1.5-6.6); NEUTROPHILS % (AUTO) 78.2 %; PLT - PLATELET COUNT 337 10^3/uL (130-450); RED BLOOD COUNT 4.66 10^6/uL (4.70-6.10); RED CELL DISTRIBUTION WIDTH 14.5 % (12.0-15.0)
[2021-08-19 01:45] LABS: ALBUMIN/GLOBULIN RATIO 1.4 (1.0-2.2); BILIRUBIN,TOTAL 1.3 mg/dL (0.2-1.0); CALCIUM 9.1 mg/dL (8.5-10.3); CREATININE 0.8 mg/dL (0.6-1.2); POTASSIUM 3.9 mmol/L (3.5-5.0); TOTAL PROTEIN 6.8 g/dL (6.7-8.2)
--- NOTE | 2021-08-19 01:50 | XRAY Report ---
PROCEDURE: Chest 1 View X-Ray INDICATIONS: Chest pain TECHNIQUE: One view of the chest was acquired. COMPARISON: None. FINDINGS: Surgical changes and devices: None. Lungs and pleura: No pleural effusions or pneumothorax. Lungs are clear. Mediastinum: Mediastinal contours appear normal. Heart size is normal. Bones and chest wall: No suspicious bony lesions. Overlying soft tissues appear unremarkable. IMPRESSION: No acute cardiopulmonary process demonstrated radiographically. Reviewed by: Sukhi Corrigan MD on 08/19/2021 1:49 AM PDT Approved by: Sukhi Corrigan MD on 08/19/2021 1:49 AM PDT Station ID: [id number]
[2021-08-19 02:06] LABS: B. PARAPERTUSSIS- RESP PCR PAN NOT DETECTED; B. PERTUSSIS- RESP PCR PANEL NOT DETECTED; C. PNEUMONIAE- RESP PCR PANEL NOT DETECTED; CORONAVIRUS 229E-RESP PCR NOT DETECTED; CORONAVIRUS HKU1-RESP PCR NOT DETECTED; CORONAVIRUS NL63-RESP PCR NOT DETECTED; CORONAVIRUS OC43-RESP PCR NOT DETECTED; HUMAN METAPNEUMOVIRUS NOT DETECTED; INFLUENZA A- RESP PCR PANEL NOT DETECTED; INFLUENZA B - RESP PCR PANEL NOT DETECTED; M. PNEUMONIAE- RESP PCR PANEL NOT DETECTED; PARAINFLUENZA VIRUS 1 NOT DETECTED; PARAINFLUENZA VIRUS 2 NOT DETECTED; PARAINFLUENZA VIRUS 3 NOT DETECTED; PARAINFLUENZA VIRUS 4 NOT DETECTED; RHINOVIRUS/ENTEROVIRUS DETECTED; RSV- RESP PCR PANEL NOT DETECTED; SARS-CoV-2 -RESP PCR PANEL NOT DETECTED
[2021-08-19 02:12] LABS: DIFFERENTIAL COMMENT MANUAL=AUTO DIFF; PLATELET ESTIMATE, MANUAL NORMAL (130-450,000) (NORMAL); RBC MORPHOLOGY (MULTIPLE) NORMAL APPEARANCE (NORMAL)
[2021-08-19 02:48] LABS: BILIRUBIN,URINE NEGATIVE (NEGATIVE); GLUCOSE, URINE (UA) NEGATIVE (NEGATIVE); KETONES,URINE (UA) NEGATIVE (NEGATIVE); LEUKOCYTE ESTERASE, URINE NEGATIVE (NEGATIVE); NITRITE,URINE NEGATIVE (NEGATIVE); OCCULT BLOOD,URINE NEGATIVE (NEGATIVE); PROTEIN,URINE NEGATIVE (NEGATIVE); UROBILINOGEN,URINE 1 (NORMAL) E.U./dL (NORMAL)
[2021-08-19 02:51] LABS: CLARITY,URINE CLEAR (CLEAR)
[2021-08-19 06:16] VITALS: BP 108/69
--- NOTE | 2021-08-19 08:55 | CT Report ---
PROCEDURE: Abdomen/Pelvis W INDICATIONS: s/p ERCP yesterday/ fluid drainage, fever today CONTRAST: IV CONTRAST: Optiray 320 ml: 100 PO CONTRAST: *NO PO CONTRAST TECHNIQUE: After the administration of intravenous contrast, 5 mm thick sections acquired from the diaphragms to the symphysis. 5 mm thick coronal and sagittal reformats were acquired. For radiation dose reducti on, the following was used: automated exposure control, adjustment of mA and/or kV according to dodie ent size. COMPARISON: January 03, 2021. FINDINGS: Inferior chest: No focal consolidation, pleural effusion, or pneumothorax. No cardiomegaly or perica rdial effusion. Gallbladder: The gallbladder is distended with a smooth thin wall. Air-fluid level within the gallbl adder, likely secondary to recent ERCP. Biliary tree: Left hepatic pneumobilia. A CBD stent is seen. Liver: The liver demonstrates normal enhancement, size, and contour. Spleen: Surgically absent. Pancreas: Surgical clips in the distal pancreatic body, compatible partial pancreatotomy. A10 by 10.8 x 10 cm complex fluid collection is seen in the region of the pancreatic tail, which exhibits surrou nding infiltrative change. The pancreatic head and uncinate process are unremarkable with stent in si tu. No pancreatic duct dilatation is appreciated. Adrenals: Normal size without masses. Kidneys/ureters: Symmetric enhancement without evidence of hydronephrosis. Punctate nonobstructive le ft nephrolithiasis. Vasculature: No evidence of aneurysm or other significant vascular pathology. Lymphatic system: No pathologic enlargement by size criteria. GI/mesentery: No evidence of intestinal obstruction. Normal appendix. Peritoneum/Retroperitoneum: No free intraperitoneal gas or large collection. Urinary bladder: The urinary bladder is distended with a smooth thin wall. Pelvic organs: No acute abnormality. Bones/soft tissues: No significant abnormality. Mild to moderate disc height loss at L5-S1 with vacuu m phenomena and posterior disc osteophyte complex. Posterior disc bulge at L4-5. IMPRESSION: 1.Complex fluid collection in the region of the pancreatic tail as detailed above, which may reflect a pseudocyst given the timeframe interval development. 2.Infiltrative changes surrounding the aforementioned fluid collection, which may reflect acute pancr eatitis. Reviewed by: Ihsan Figueroa MD on 08/19/2021 8:53 AM PDT Approved by: Ihsan Figueroa MD on 08/19/2021 8:53 AM PDT Station ID: [id number]
== END 2021-08-19 06:17 | disposition home or self-care (01) ==
LOC: EDUNIT# → ED 00:39
DX: J06.9 Acute upper respiratory infection, unspecified (principal); F17.200 Nicotine dependence, unspecified, uncomplicated; Z20.822 Contact with and (suspected) exposure to COVID-19
CPT/HCPCS: 0202U; 36415; 71045; 74177; 80053; 81003; 83605; 83690; 85025; 87040; 96365; 96375; 99284; J1170; Q9967; 81001; 87086

== ENCOUNTER 2022-04-25 20:03 | Emergency (ER) | payer BC ==
[2022-04-25] MEDS ORDERED: INSULIN REGULAR HUMAN 100 UNIT/1 ML 10 ML MDV IVP STA (20:17)
[2022-04-25] MEDS ORDERED: SODIUM CHLORIDE 0.9% 1,000 ML IV STA (20:17)
[2022-04-25 20:32] LABS: BASOPHILS # (AUTO) 0.1 10^3/uL (0.0-0.1); BASOPHILS % (AUTO) 0.5 %; EOSINOPHILS # (AUTO) 0.1 10^3/uL (0.0-0.7); EOSINOPHILS % (AUTO) 0.7 %; HCT - HEMATOCRIT 40.2 % (42.0-52.0); HGB - HEMOGLOBIN 13.7 g/dL (14.0-18.0); LYMPHOCYTES # (AUTO) 4.2 10^3/uL (1.5-3.5); MEAN CORPUSCULAR HEMOGLOBIN 29.2 pg (27.0-31.0); MEAN CORPUSCULAR HGB CONC 34.1 g/dL (32.0-36.0); MEAN CORPUSCULAR VOLUME 85.7 fL (80.0-94.0); MEAN PLATELET VOLUME 9.7 fL (7.4-11.4); MONOCYTES # (AUTO) 0.6 10^3/uL (0.0-1.0); MONOCYTES % (AUTO) 6.2 %; NEUTROPHILS % (AUTO) 50.4 %; PLT - PLATELET COUNT 371 10^3/uL (130-450); RED BLOOD COUNT 4.69 10^6/uL (4.70-6.10)
[2022-04-25 20:33] LABS: VBG PCO2 36.1 mmHg (41-51); VBG PH 7.432 (7.31-7.41); VBG PO2 73.5 mmHg (25-47)
[2022-04-25 20:34] LABS: VBG BASE EXCESS -0.3 mmol/L (-2 - +2); VBG HCO3 23.5 mmol/L (23-28); VBG TOTAL CO2 24.6 mmol/L (24-29)
[2022-04-25 20:45] LABS: ALBUMIN 4.4 g/dL (3.2-5.5); ALBUMIN/GLOBULIN RATIO 1.3 (1.0-2.2); ALKALINE PHOSPHATASE 154 IU/L (42-121); ALT ALANINE AMINOTRANSFERASE 27 IU/L (10-60); AST ASPARTATE AMINOTRANSFERASE 20 IU/L (10-42); BILIRUBIN,TOTAL 0.5 mg/dL (0.2-1.0); BUN - BLOOD UREA NITROGEN 12 mg/dL (6-20); CALCIUM 10.1 mg/dL (8.5-10.3); CARBON DIOXIDE - CO2 24 mmol/L (21-32); CHLORIDE 97 mmol/L (101-111); CREATININE 0.8 mg/dL (0.6-1.2); GFR - MDRD 108 (>89); GLUCOSE 398 mg/dL (70-100); MAGNESIUM 2.1 mg/dL (1.7-2.8); POTASSIUM 4.1 mmol/L (3.5-5.0); SODIUM 130 mmol/L (135-145); TOTAL PROTEIN 7.8 g/dL (6.7-8.2)
[2022-04-25 20:53] LABS: KETONES, SERUM (ACETEST) NEGATIVE (NEGATIVE)
--- NOTE | 2022-04-25 21:00 | ED Physician Documentation ---
History of Present Illness - Stated complaint Stated Complaint: HIGH BLOOD SUGAR - Chief complaint Chief Complaint: General - History obtained from History obtained from: Patient - Additonal information Additional information: Patient is a 41-year-old male with a history of pancreatic cancer status postresection presenting for evaluation of elevated blood sugars. He does not previously have a diagnosis of diabetes but was warned that he could develop diabetes due to his previous pancreatic surgery. The surgery was a year ago.Starting yesterday he was feeling frequent urination as well as lighth eadedness and thirst. He has a home glucometer and checked it earlier today and it was in the 500 range. He denies fever, chest pain, cough, abdominal pain, vomiting or diarrhea.He does not currently take any medications. He does have regular follow-up with his oncologist through [facility] (Dr. Moe Fenton). Review of Systems Constitutional: denies: Fever Nose: denies: Congestion Cardiac: denies: Chest pain / pressure Respiratory: denies: Dyspnea, Cough GI: denies: Abdominal Pain, Vomiting, Diarrhea : reports: Frequency. denies: Dysuria Skin: denies: Rash Musculoskeletal: denies: Back pain Neurologic: denies: Headache PD PAST MEDICAL HISTORY - Past Medical History Cardiovascular: None Respiratory: None Neuro: None HEENT: None Derm: None - Past Surgical History Past Surgical History: Yes General: Splenectomy, Other - Present Medications Home Medications: Ambulatory Orders Medication Instructions Recorded Confirmed levoFLOXacin [Levaquin] 500 mg PO ONCE 08/19/21 08/19/21 metFORMIN [Glucophage] 500 mg PO BIDWM #60 tablet 04/25/22 - Allergies Allergies/Adverse Reactions: Allergies Allergy/AdvReac Type Severity Reaction Status Date / Time shellfish derived Allergy Edema Verified 04/25/22 20:15 - Social History Does the pt smoke?: Yes Smoking Status: Current every day smoker Does the pt drink ETOH?: Yes Does the pt have substance abuse?: No - Immunizations Immunizations are current?: Yes - POLST Patient has POLST: No PD ED PE NORMAL - General General: Alert and oriented X 3, No acute distress, Well developed/nourished - HEENT HEENT: Atraumatic, Moist mucous membranes - Neck Neck: Supple, no meningeal sign - Cardiac Cardiac: RRR, No murmur, Strong equal pulses - Respiratory Respiratory: No respiratory distress, Clear bilaterally - Abdomen Abdomen: Normal bowel sounds, Soft, Non tender, Non distended, Other (Well- healed abdominal incision) - Back Back: No CVA TTP - Derm Derm: Warm and dry - Extremities Extremities: No edema - Neuro Neuro: Alert and oriented X 3, No motor deficit, Normal speech - Psych Psych: Normal mood Results - Vitals Vitals: Vital Signs - 24 hr 04/25/22 04/25/22 04/25/22 20:05 20:14 22:14 Temperature 36.6 C 36.6 C Heart Rate 81 81 72 Respiratory 18 18 18 Rate Blood Pressure 134/79 H 134/79 H 134/78 H O2 Saturation 97 97 96 04/25/22 23:07 Temperature Heart Rate 75 Respiratory 15 Rate Blood Pressure 126/79 O2 Saturation 96 Oxygen O2 Source Room air - Labs Labs: Laboratory Tests 04/25/22 04/25/22 04/25/22 20:25 20:25 20:25 WBC 10.0 RBC 4.69 L Hgb 13.7 L Hct 40.2 L MCV 85.7 MCH 29.2 MCHC 34.1 RDW 13.0 Plt Count 371 MPV 9.7 Neut # (Auto) 5.0 Lymph # (Auto) 4.2 H [place] # (Auto) 0.6 Eos # (Auto) 0.1 Baso # (Auto) 0.1 Absolute Nucleated RBC 0.00 Nucleated RBC % 0.0 VBG pH 7.432 H VBG pCO2 36.1 L VBG pO2 73.5 H VBG HCO3 23.5 VBG Total CO2 24.6 VBG O2 Saturation 96.0 H VBG Base Excess -0.3 Sodium 130 L Potassium 4.1 Chloride 97 L Carbon Dioxide 24 Anion Gap 9.0 BUN 12 Creatinine 0.8 Estimated GFR (MDRD) 108 Glucose 398 H POC Whole Bld Glucose Calcium 10.1 Phosphorus 4.0 Magnesium 2.1 Total Bilirubin 0.5 AST 20 ALT 27 Alkaline Phosphatase 154 H Total Protein 7.8 Albumin 4.4 Globulin 3.4 Albumin/Globulin Ratio 1.3 Serum Ketones NEGATIVE 04/25/22 04/25/22 20:52 22:11 WBC RBC Hgb Hct MCV MCH MCHC RDW Plt Count MPV Neut # (Auto) Lymph # (Auto) [place] # (Auto) Eos # (Auto) Baso # (Auto) Absolute Nucleated RBC Nucleated RBC % VBG pH VBG pCO2 VBG pO2 VBG HCO3 VBG Total CO2 VBG O2 Saturation VBG Base Excess Sodium Potassium Chloride Carbon Dioxide Anion Gap BUN Creatinine Estimated GFR (MDRD) Glucose POC Whole Bld Glucose 355 H 289 H Calcium Phosphorus Magnesium Total Bilirubin AST ALT Alkaline Phosphatase Total Protein Albumin Globulin Albumin/Globulin Ratio Serum Ketones PD MEDICAL DECISION MAKING - ED course Complexity details: reviewed results, re-evaluated patient, d/w patient ED course: 41-year-old male presenting for evaluation of hyperglycemia. He is well- appearing, nontoxic. Labs and exam do not suggest diabetic ketoacidosis. His blood sugar was elevated and he was given IV fluids and insulin for this. His blood sugar did reduce appropriately.No history or exam findings to suggest an infection as cause of this. He does have a history of pancreatic resection due to cancer and was warned that he may develop diabetes in the future. As his blood sugar readings have been above 300, I do believe he does have diabetes and will start on an oral agent. He will be started on metformin 500 mg twice daily but is aware he needs to have close follow-up with her primary care doctor or one of his specialist For further management. He is advised on strict return precautions for any worsening symptoms. Departure - Departure Disposition: 01 Home, Self Care Clinical Impression: Acute hyperglycemia Condition: Stable Instructions: ED Hyperglycemia New Susp Diabetes Follow-Up: Leobardo Sepulveda DO [Provider Admit Priv/Credential] - Prescriptions: metFORMIN [Glucophage] 500 mg PO BIDWM #60 tablet Comments: You were evaluated for high blood sugar. I suspect that youHave developed diabetes, likely as a result of having part of your pancreas removed.We did give you medication to help lower your blood sugar today. I will also start you on a pill that may help with diabetes. However, you need close follow-up with your primary care doctor or one of your specialist. If you do not have a primary care doctor I have listed the name of the physician you can call tomorrow to establish care with and get an appointment. I have sent your prescription to [facility] in [place]. If you have any worsening symptoms please return to the emergency department. Discharge Date/Time: 04/25/22 23:07
[2022-04-25] MEDS ORDERED: ACETAMINOPHEN 325 MG TABLET PO STA (21:34)
[2022-04-25 23:09] VITALS: BP 126/79
== END 2022-04-25 23:07 | disposition home or self-care (01) ==
LOC: ED 20:03
DX: R73.9 Hyperglycemia, unspecified (principal); F17.200 Nicotine dependence, unspecified, uncomplicated
CPT/HCPCS: 36415; 80053; 82009; 82803; 83735; 84100; 85025; 96360; 99283; 99284; A9270; J1815